=== PATIENT | female | born 1960 | race Caucasian/White ===

== ENCOUNTER → 2017-01-23 | Outpatient (CLI) | payer MEDICARE ==
[2017-01-23 16:00] LABS: CH 31.3; CHCM 34.2; HCT 40.3 % (34.0-46.0); HDW 2.48; HGB 13.3 gm/dL (11.4-16.0); MCH 30.4 pg (25.0-35.0); MCV 92.1 fL (80.0-100.0); Mean Platelet Volume 7.9; RBC 4.38 m/uL (3.80-5.40); RDW 13.9 % (11.5-15.5); WBC 6.6 k/uL (3.8-10.6)
== END | disposition home or self-care (01) ==
LOC: LABPAT 15:05
PROVIDERS: ATTEND Otolaryngology
DX: Z01.812 Encounter for preprocedural laboratory examination (principal)
CPT/HCPCS: 85027

== ENCOUNTER 2017-02-14 08:42 | Day surgery (SDC) | payer MEDICARE, OTHER ==
[2017-02-11 15:28] VITALS: BMI 40.3
--- NOTE | 2017-02-14 00:59 | P.HPIM ---
History of Present Illness H&P Date: 02/14/17 Chief Complaint: Lesion of the left side of the tongue This patient is a 56-year-old female who presented to my office complaining of having a sore on the left side of her tongue that had been there for at least 1 month. The patient stated it was quite painful and she was also complaining of pain in her left ear. She is a nonsmoker and does not use any tobacco products. She does, however, admit to exposure to second-hand smoke. At the time that the patient was seen in my office clinical examination of the oropharynx revealed a suspicious, well-circumscribed, ulcerative lesion of the mid posterior/lateral border of the left side of the tongue. This area was highly suspicious for a possible malignancy. Because of her symptomatology of referred left otalgia it was recommended that she undergo complete excision of this lesion under general anesthesia. Past medical history: This patient has numerous ALLERGIES to medication including: Tylenol, codeine, aripiprazole, codeine, erythromycin, Zithromax, Vicodin, hydrocodone, lamotrigine, triamterene , Spironolactone, sulfa, Bactrim, penicillin, Ceclor, and Abilify. Her current medications include Buspar, hydroxyzine, Invega, Oxycarbazepine, amlodipine, and clonidine. Her previous surgeries include cholecystectomy and colonoscopy. She is 3-para, 2-, 1 , and 0-miscarriage. Review of systems reveals that the cardiovascular system is positive for hypertension. The metabolic endocrine and the remainder of the review of systems is essentially unremarkable. Physical examination: This patient is a 56-year-old female who is alert and corporative. HEENT: The patient is normocephalic. Both tympanic membranes are normal. The pupils are equal, round, and reactive to light and accommodation. Extraocular movements are within normal limits. Intranasal examination reveals moderate to severe septal deviation to the left with bilateral compensatory hypertrophy of the inferior turbinates. Examination of the oropharynx reveals that the patient has a ulcerative, well-circumscribed, tender, approximately 1 cm lesion located on the postero-lateral lateral border of the left side of the tongue. No other suspicious lesions are noted in the oropharynx. Palpation of the neck, cranial nerves II through XII, and the remainder of the head and neck exam all within normal limits. Chest cardiovascular: Both lung calle are clear to percussion and auscultation. The patient is an regular sinus rhythm. S1 and S2 are present without evidence of any murmurs, S3s or S4's. Peripheral pulses are bilaterally symmetrical and within normal limits. Abdomen: There is no evidence of any masses, megaly, or tenderness. The abdomen is soft. Musculoskeletal and neurological: Within normal limits. Skin: Within normal limits. Rectal exam: The rectal exam is deferred at this time because the patient has done a regular basis at his family physician's office. The remainder of the physical examination is essentially unremarkable. Impression: Lesion of the left side of the tongue. Plan. The patient is scheduled to undergo excision of lesion of the left side of the tongue under general anesthesia. Attention RNs in the pre-surgical area : I have ordered for this patient to receive 900 mg clindamycin IVPB after a intravenous line has been established. I have not ordered any intravenous Ofirmev because the patient is ALLERGIC to acetaminophen. If the pharmacy sends any other pre-surgical prophylactic antibiotic in addition to the clindamycin, please cancel that order, return it to pharmacy, and make sure that the patient's account is credited appropriately. Past Medical History Past Medical History: Hypertension, Sleep Apnea/CPAP/BIPAP Additional Past Medical History / Comment(s): C PAP , History of Any Multi-Drug Resistant Organisms: None Reported Past Surgical History: Section, Cholecystectomy Past Anesthesia/Blood Transfusion Reactions: No Reported Reaction Smoking Status: Never smoker - Past Family History Mother Family Medical History: No Reported History Medications and Allergies Home Medications Medication Instructions Recorded Confirmed Type OXcarbazepine [Trileptal] 300 mg PO DAILY 02/11/17 02/11/17 History OXcarbazepine [Trileptal] 450 mg PO HS 02/11/17 02/11/17 History Paliperidone Palmitate [Invega 117 mg IM Q30D 02/11/17 02/11/17 History Sustenna] amLODIPine [Norvasc] 10 mg PO DAILY 02/11/17 02/11/17 History buPROPion [Wellbutrin] 100 mg PO BID 02/11/17 02/11/17 History cloNIDine HCL [Catapres] 0.1 mg PO BID 02/11/17 02/11/17 History hydrOXYzine PAMOATE 50 mg PO HS 02/11/17 02/11/17 History Allergies Allergy/AdvReac Type Severity Reaction Status Date / Time acetaminophen [From Vicodin] Allergy RAPID Verified 02/11/17 14:57 HEART BEAT aripiprazole [From Abilify] Allergy SHAKING OF Verified 02/11/17 14:54 LEGS codeine Allergy Hallucinati Verified 02/11/17 14:54 ons enalapril Allergy Swelling Verified 02/11/17 14:54 THE THROAT erythromycin base Allergy Rash/Hives Verified 02/11/17 14:57 hydrocodone [From Vicodin] Allergy RAPID Verified 02/11/17 14:57 HEART BEAT lamotrigine [From Lamictal] Allergy Rash/Hives Verified 02/11/17 14:57 Penicillins Allergy Rash/Hives Verified 02/11/17 14:54 risperidone [From Risperdal] Allergy Rash/Hives Verified 02/11/17 14:54 spironolactone Allergy Nausea & Verified 02/11/17 14:57 Vomiting,HEADACHE sulfamethoxazole Allergy Rash/Hives Verified 02/11/17 14:51 [From Bactrim] triamterene Allergy Abdominal Verified 02/11/17 14:57 Pain trimethoprim [From Bactrim] Allergy Rash/Hives Verified 02/11/17 14:51 Thrombosis Risk Factor Assmnt - Choose All That Apply Each Factor Represents 1 point: Age 41-60 years Thrombosis Risk Factor Assessment Total Risk Factor Score: 1 Thrombosis Risk Factor Assessment Level: Low Risk
[~2017-02-14 08:42] MED LIST: Pre Op ABX Message 1 EACH MISC MISCELLANE ONE
[2017-02-14 09:17] VITALS: RESP 16
[2017-02-14] MEDS ORDERED: LIDOCAINE 1% 20 ML VIAL (10MG/ML) FOR IV START INTRADERMA ONE (09:20)
[2017-02-14] MEDS ORDERED: LACTATED RINGERS 1,000 ML IV ONE (09:20)
[2017-02-14] MEDS ORDERED: DEXAMETHASONE SOD PHOSPHATE 10 MG/ML 1 ML VIAL IV ONE (09:31)
[2017-02-14] MEDS ORDERED: ONDANSETRON 4 MG/2 ML VIAL IVP ONE (09:31)
[2017-02-14] MEDS ORDERED: CLINDAMYCIN 900 MG in DEXTROSE 5% IN WATER 50 ML IVPB ONE ×2 (09:45)
[2017-02-14] MEDS ORDERED: DEXAMETHASONE SOD PHOS (MDV) 100 MG/10 ML VIAL ONE (10:11)
[2017-02-14] MEDS ORDERED: NEOSTIGMINE 1 MG/ML 10 ML VIAL ONE (10:11)
[2017-02-14] MEDS ORDERED: ROCURONIUM BROMIDE 10 MG/ML 10 ML VIAL IV ONE (10:11)
[2017-02-14] MEDS ORDERED: PROPOFOL 10 MG/ML 20 ML VIAL IV ONE (10:11)
[2017-02-14] MEDS ORDERED: LIDOCAINE 1% INJ 10MG/ML (20 ML MDV) ONE (10:11)
[2017-02-14] MEDS ORDERED: fentaNYL (PF) 50 MCG/ML 2 ML AMP ONE (10:11)
[2017-02-14] MEDS ORDERED: GLYCOPYRROLATE 0.2 MG/ML 2 ML VIAL ONE ×2 (10:11)
[2017-02-14] MEDS ORDERED: MIDAZOLAM 2 MG/2 ML VIAL ONE (10:11)
[2017-02-14] MEDS ORDERED: SUCCINYLCHOLINE CHLORIDE 100 MG/5 ML SYR IV ONE (10:11)
[2017-02-14] MEDS ORDERED: LIDOCAINE 1%-EPI 1:100,000 20 ML VIAL SQ ONE (10:38)
[2017-02-14 11:47] VITALS: TEMP 97
[2017-02-14 12:55] VITALS: BP 144/86; PULSE 80
--- NOTE | 2017-02-17 22:28 | P.OP ---
Date of Procedure: 02/14/17 Preoperative Diagnosis: Lesion of the left postero-lateral border of the tongue Postoperative Diagnosis: Lesion of the left posterior lateral border of the tongue, final pathology pending, margins marked with different colored sutures. Procedure(s) Performed: Complete excision of 1 cm lesion of the postero-lateral border of the left tongue Implants: Anesthesia: GETA Surgeon: Paco Khan Indications for Procedure: Operative Findings: Description of Procedure: The patient was placed on operating table in supine position and after uneventful induction and endotracheal intubation, satisfactory general anesthesia was obtained. Next, the patient's head was draped in usual customary fashion. Following this a medium sized dental bite block was placed in the left buccal sulcus. Next, the tip of the tongue was grasped with a towel clip and pulled anteriorly thus exposing the posteriorly located lesion. It was felt to be approximately 1 cm in dimension. Next, using a #15 scalpel an incision was made in a elliptical fashion cutting through the mucous membrane and into the underlying muscle in the usual and customary fashion. Care was taken to excise adequate margins of at least 0.5 cm-0.7cm. The incision began posteriorly and continued anteriorly in the usual customary fashion and the entire lesion was subsequently excised completely. The lesion was then tagged to doris the margins with a black suture to marked anterior margin, a black suture to doris the ventral margin , a white suture to doris the posterior margin, and a chromic suture to doris the dorsal margin of excision.. The specimen was sent to pathology in formalin for permanent sectioning. Hemostasis was obtained using electrocautery. The wound defect was then closed in 2 layers using 3-0 rapid absorbing Vicryl in interrupted, buried fashion to close the deep layer of muscle. The mucous membrane was closed with a combination of 3-0 rapid absorbing Vicryl in interrupted, buried fashion and 4- 0 rapid absorbing Vicryl and interrupted, buried fashion and finally 4-0 chromic suture in interrupted, buried fashion. Estimated blood loss was less than 5 mL. At this point the procedure was terminated. The patient was given 10 mg of Decadron intra-operatively to reduce any swelling of the tongue muscle post-operatively. The patient tolerated procedure well and was returned to the recovery room in satisfactory condition. Final pathology is pending.
== END 2017-02-14 13:06 | disposition home or self-care (01) ==
LOC: OR 08:42
PROVIDERS: ATTEND Otolaryngology
DX: K13.5 Oral submucous fibrosis (principal); K14.0 Glossitis; Z77.22 Contact with and (suspected) exposure to environmental tobacco smoke (acute) (chronic); J34.2 Deviated nasal septum; J34.3 Hypertrophy of nasal turbinates; I10 Essential (primary) hypertension; G47.30 Sleep apnea, unspecified; Z99.89 Dependence on other enabling machines and devices; Z79.899 Other long term (current) drug therapy; Z88.6 Allergy status to analgesic agent; Z88.5 Allergy status to narcotic agent; Z88.0 Allergy status to penicillin; Z88.2 Allergy status to sulfonamides; Z88.8 Allergy status to other drugs, medicaments and biological substances
CPT/HCPCS: 88305; 41112; J2250; J1100 ×2; J2710; J2405; J2001; J3010; J0330; J2704